=== PATIENT | male | born 1960 ===

== ENCOUNTER 2019-05-16 10:54 | Emergency (ER) | payer SELFPAY ==
[2019-05-16] MEDS ORDERED: TERBINAFINE1 % EX (11:32)
[2019-05-16 12:07] VITALS: BP 125/94
== END 2019-05-16 12:07 | disposition home or self-care (01) | DRG 395 ==
LOC: ED 10:54
DX: K94.22 Gastrostomy infection (principal); B37.2 Candidiasis of skin and nail

== ENCOUNTER 2021-01-08 17:06 | Emergency (ER) | payer MEDICAID ==
[~2021-01-08] VITALS: Ht 177.8 cm; Wt 71.8 kg
[~2021-01-08 17:06] MED LIST: TERBINAFINE1 % EX
[2021-01-08 19:47] LABS: HEMATOCRIT 40.6 % (39.0-50.0); HEMOGLOBIN 13.4 g/dl (14.0-18.0); IMMATURE GRANULOCYTES 0.5 % (0.0-5.0); MEAN CELL VOLUME 95.1 fL CALC (80.0-100.0); MEAN CORPUSCULAR HGB 31.4 pG CALC (26.0-32.0); NEUT# 10.47 thou/uL (1.82-7.42); RED BLOOD COUNT 4.27 mill/uL (4.70-6.10); RED CELL DISTRI WIDTH 13.2 % (11.5-15.5)
[2021-01-08 19:54] LABS: BUN 16 mg/dL (9-20); BUN/CREATININE RATIO 25 (12-20 (CALC)); CARBON DIOXIDE 30 mmol/l (22-30); CHLORIDE 94 mmol/l (95-108); CREATININE 0.6 mg/dL (0.7-1.3); GFR > 60 ML/MIN (>=60 (CALC)); GFR FOR AFR.AMER. > 60 ML/MIN (>=60 (CALC)); POTASSIUM 4.6 mmol/l (3.5-5.1); TOTAL PROTEIN 6.5 g/dL (6.3-8.2)
[2021-01-08 19:55] LABS: ALBUMIN 3.3 g/dL (3.2-5.0); ALKALINE PHOSPHATASE 977 u/l (38-126); AMYLASE 42 u/l (30-110); ANION GAP 11 (6-22 (CALC)); BILIRUBIN, TOTAL 0.9 mg/dL (0.0-1.4); LIPASE 48 u/l (23-300); SGOT/AST 165 u/l (17-59); SODIUM 130 mmol/l (137-146)
[2021-01-08 22:41] LABS: URINE BILIRUBIN - DIPSTICK NEGATIVE (NEGATIVE); URINE BLOOD DIPSTICK NEGATIVE (NEGATIVE); URINE COLOR YELLOW; URINE GLUCOSE - DIPSTICK NEGATIVE (NEGATIVE); URINE KETONE NEGATIVE (NEGATIVE); URINE LEUK ESTERASE NEGATIVE (NEGATIVE); URINE PROTEIN - DIPSTICK NEGATIVE (NEG-TRACE); URINE UROBILINOGEN - DIPSTICK 0.2 E.U./dL (0.2)
[2021-01-08 22:47] LABS: URINE NITRITE - DIPSTICK NEGATIVE (Negative)
[2021-01-08] MEDS ORDERED: LORTAB 5/3255 MG PO (22:58)
[2021-01-08 23:09] VITALS: BP 101/58
== END 2021-01-08 23:19 | disposition home or self-care (01) ==
LOC: ED 17:06
PROVIDERS: Family Medicine
DX: R10.31 Right lower quadrant pain (principal); R16.0 Hepatomegaly, not elsewhere classified; Z20.822 Contact with and (suspected) exposure to COVID-19
CPT/HCPCS: Q9967

== ENCOUNTER 2021-07-29 06:41 | Inpatient (IN) | payer MEDICARE, MEDICAID ==
[2021-07-29] VITALS (61 sets, daily range): BP systolic 82–126; BP diastolic 36–76
[~2021-07-29] VITALS: Ht 180.3 cm; Wt 74.0 kg
[~2021-07-29 06:41] MED LIST changes: +LORTAB 5/3255 MG PO
--- NOTE | 2021-07-29 07:03 | NUR ---
PT TO ROOM PER W/C
[2021-07-29] MEDS ORDERED: ELIQUIS5 MG PO (07:32)
[2021-07-29] MEDS ORDERED: FAMOTIDINE20 M1 PO (07:35)
[2021-07-29] MEDS ORDERED: COMPAZINE10 MG PO (07:35)
[2021-07-29] MEDS ORDERED: SALAGEN7.5 MG PO (07:38)
[2021-07-29] MEDS ORDERED: ONDANSETRON ODT8 MG PO (07:38)
[2021-07-29] MEDS ORDERED: OXYCODONE20 M1 PO (07:43)
[2021-07-29] MEDS ORDERED: FENTANYL50 MCG/HR TD (07:45)
[2021-07-29 07:57] LABS: IMMATURE GRANULOCYTES 0.5 % (0.0-5.0); MEAN CORPUSCULAR HGB 31.2 pG CALC (26.0-32.0); MEAN CORPUSCULAR HGB CONC 33.6 g/dL CAL (32.0-36.0); PLATELET COUNT 532 thou/uL (130-400); RED BLOOD COUNT 3.14 mill/uL (4.70-6.10); RED CELL DISTRI WIDTH 16.8 % (11.5-15.5)
--- NOTE | 2021-07-29 08:00 | NUR ---
PT LABS SENT, MEDICATED FOR PAIN AND PLACED ON BIPAP.
[2021-07-29 08:10] LABS: ALBUMIN 2.7 g/dL (3.2-5.0); ALKALINE PHOSPHATASE 805 u/l (38-126); ANION GAP 9 (6-22 (CALC)); BUN 27 mg/dL (9-20); BUN/CREATININE RATIO 29 (12-20 (CALC)); CARBON DIOXIDE 30 mmol/l (22-30); CHLORIDE 90 mmol/l (95-108); CREATININE 0.9 mg/dL (0.7-1.3); GFR > 60 ML/MIN (>=60 (CALC)); GFR FOR AFR.AMER. > 60 ML/MIN (>=60 (CALC)); LIPASE < 10 u/l (23-300); POTASSIUM 5.1 mmol/l (3.5-5.1); SGOT/AST 94 u/l (17-59); SODIUM 124 mmol/l (137-146); TOTAL PROTEIN 6.4 g/dL (6.3-8.2)
[2021-07-29 08:14] LABS: HEMATOCRIT 29.2 % (39.0-50.0); HEMOGLOBIN 9.8 g/dl (14.0-18.0)
[2021-07-29 08:15] LABS: MANUAL DIFFERENTIAL YES
--- NOTE | 2021-07-29 09:10 | NUR ---
PT ARNEL TO CT. PLACED ON NRB @15
[2021-07-29 09:30] LABS: URINE BILIRUBIN - DIPSTICK NEGATIVE (NEGATIVE); URINE BLOOD DIPSTICK NEGATIVE (NEGATIVE); URINE COLOR YELLOW; URINE GLUCOSE - DIPSTICK NEGATIVE (NEGATIVE); URINE KETONE NEGATIVE (NEGATIVE); URINE LEUK ESTERASE NEGATIVE (NEGATIVE); URINE PROTEIN - DIPSTICK NEGATIVE (NEG-TRACE)
[2021-07-29 09:32] LABS: URINE NITRITE - DIPSTICK NEGATIVE (Negative)
--- NOTE | 2021-07-29 10:00 | NUR ---
PT RESTING COMFORTABLY IN BED. VSS
--- NOTE | 2021-07-29 11:00 | NUR ---
Reassessment of patient completed. No distress noted.
--- NOTE | 2021-07-29 12:00 | NUR ---
Reassessment of patient completed. No distress noted.
--- NOTE | 2021-07-29 13:00 | NUR ---
Reassessment of patient completed. No distress noted.
--- NOTE | 2021-07-29 13:10 | NUR ---
PT PLACED ON PAP THERAPY TODAY PER PT PRESENTED TO ED ON RA WITH SPO2 = 78. SOB C LABORED BREATHING, ABG WAS ATTEMPTED, HOWEVER COULD NOT BE OBTAINED PER PT ANXIETY. PT PLACED ON PAP THERAPY C NAD. VSS. TITRATED PARAMETERS OF NIV PER PT SPO2. MEMS DEVICE SCIENTIST TO MONITOR.
--- NOTE | 2021-07-29 13:34 | NUR ---
pt placed on 6lpm nc, nad. vss. pt states his breathing is feeling better.
--- NOTE | 2021-07-29 14:18 | NUR ---
PROVIDED PT WITH MILK AND REPOSTIONED PT. UPDATED PT ON POC AND WAIT TIMES FOR ADMISSION
[2021-07-29] MEDS ORDERED: ALDACTONE25 MG PO (14:27)
[2021-07-29] MEDS ORDERED: EUTHYROX25 MCG PO (14:27)
[2021-07-29] MEDS ORDERED: OMEPRAZOLE DR40 MG PO (14:27)
--- NOTE | 2021-07-29 15:00 | NUR ---
Reassessment of patient completed. No distress noted.
--- NOTE | 2021-07-29 16:00 | NUR ---
Reassessment of patient completed. No distress noted.
--- NOTE | 2021-07-29 17:00 | NUR ---
Reassessment of patient completed. No distress noted.
--- NOTE | 2021-07-29 18:07 | NUR ---
Reassessment of patient completed. No distress noted.
--- NOTE | 2021-07-29 19:15 | NUR ---
REPORT TO YANETH MARK/ICU.
--- NOTE | 2021-07-29 19:35 | NUR ---
PT TALKING WITH S.O. ON SPEAKER PHONE....WHO IS UPSET BECAUSE WE TOLD THEM VISITING HOURS ARE OVER....PT CALLED US "[facility]." PT APPARENTLY UPSET HE THINKS I CALLED HIM AN ASSHOLE, HOWEVER, JAYME, NURSING PACKING SHED SUPERVISOR OVERHEARD CONVERSATION... SHE WAS IN ROOM TO TAKE PT UPSTAIRS.
--- NOTE | 2021-07-29 19:45 | NUR ---
PT TO FLOOR WITH POST HOLE DIGGER WITH O2 AND BELONGINGS.
--- NOTE | 2021-07-29 20:00 | NUR ---
ARRIVED VIA STRETCHER TO ICU ROOM 3 ACCOMPANIED BY NURSE. ALERT AND ORIENTED TRANSFERED TO HOSPITAL BED WITHOUT DIFFICULTY. SOB NOTED WITH EXERTION. PATIENT ORIENTED TO ROOM AND HOURS OF VISITATION FOR FAMILY. DISCUSSED PLAN OF CARE. PATIENT ABLE TO TOLERATE PO FLUIDS. OMPLAIN OF LOWER BACK PAIN AT 3 - 4 ON PAIN SCALE HOME MEDICATION RECORD REVIEWED.
--- NOTE | 2021-07-29 22:00 | NUR ---
RESTING QUIETLY IN BED WITH EYES CLOSED NO ACUTE DISTRESS NOTED. RESPIRATIONS EVEN AND UNLABORED
--- NOTE | 2021-07-29 23:00 | NUR ---
PATIENT TURNED AND REPOSITIONED TO LEFT SIDE PLACED IN SEMIFOWLER POSITION FOR COMFORT RESPIRATION EFFORT IMPROVED RESPIRATIONS EVEN AND UNLABORED O2 SAT 95% ON 4LPM NC WILL CONTINUE TO MONITOR.
[2021-07-30] VITALS (206 sets, daily range): BP systolic 81–114; BP diastolic 32–65
--- NOTE | 2021-07-30 | NUR ---
PATIENT RESTING QUIETLY IN BED WITH EYES CLOSED EASILY AROUSABLE ASIISTED TO BEDSIDE COMMODE VOIDED 300 CC ELKE URINE MILD SOB NOTED WITH ACTIVITY. PLEASANT AND COOPERATIVE
--- NOTE | 2021-07-30 01:06 | NUR ---
COMPLAIN OF LOWER BACK PAIN MEDICATED WITH OXYCOTIN 15 MG PO REPOSITIONED IN BED FOR COMFORT RESPIRATORY EFFORT IMPROVEDON HUMDIFIED O2 AT 4LPM NC
--- NOTE | 2021-07-30 02:00 | NUR ---
RESTING QUIETLY IN BED NO ACUTE DISTRESS NOTED VSS
--- NOTE | 2021-07-30 04:00 | NUR ---
TURNED AND REPOSITIONED IN BED FOR COMFORT NO ACUTE DISTRESS NOTED RESPIRATIONS EVEN AND UNLABORED.
--- NOTE | 2021-07-30 05:08 | NUR ---
COMPLAIN OF LOWER BACK PAIN ASSSISTED IN REPOSITIONING IN BED. MEDICATED TO ALLEVIATE PAIN AND DISCOMFORT.
--- NOTE | 2021-07-30 06:01 | NUR ---
RESTING QUIETLY IN BED NO ACUTE DISTRESS NOTED. RESPIRATIONS EVEN AND UNLABORED. AFFECT GOOD.
[2021-07-30 06:09] LABS: HEMATOCRIT 29.8 % (39.0-50.0); HEMOGLOBIN 9.9 g/dl (14.0-18.0); MEAN CORPUSCULAR HGB 31.2 pG CALC (26.0-32.0); MEAN CORPUSCULAR HGB CONC 33.2 g/dL CAL (32.0-36.0); RED BLOOD COUNT 3.17 mill/uL (4.70-6.10); RED CELL DISTRI WIDTH 17.2 % (11.5-15.5)
[2021-07-30 06:48] LABS: ALBUMIN 2.3 g/dL (3.2-5.0); ALKALINE PHOSPHATASE 669 u/l (38-126); ANION GAP 8 (6-22 (CALC)); BILIRUBIN, TOTAL 1.6 mg/dL (0.0-1.4); BUN 24 mg/dL (9-20); BUN/CREATININE RATIO 28 (12-20 (CALC)); CARBON DIOXIDE 28 mmol/l (22-30); CHLORIDE 94 mmol/l (95-108); CREATININE 0.9 mg/dL (0.7-1.3); GFR > 60 ML/MIN (>=60 (CALC)); GFR FOR AFR.AMER. > 60 ML/MIN (>=60 (CALC)); MAGNESIUM 2.1 mg/dL (1.6-2.3); POTASSIUM 4.9 mmol/l (3.5-5.1); SGOT/AST 84 u/l (17-59); SODIUM 125 mmol/l (137-146); TOTAL PROTEIN 5.3 g/dL (6.3-8.2)
--- NOTE | 2021-07-30 07:31 | NUR ---
REPORT RECEIVED FROM YANETH MARK. PT AWAKE AND ALERT. STATES HE IS FEELING BETTER. BREATHING LIKE HE WAS BEFORE HE CAME IN. PT VSS. ADMITS TO PAIN. ASSESSMENT PREFORMED. LEFT WRIST HAS BANDAGE FROM HOME (PAPER TOWELS) THAT ARE DRIED TO SKIN. WILL SOAK WITH WARM WATER AND RE-APPLY ACCORDINGLY. CALL LIGHT WITHIN REACH. INSTRUCTED PT TO CALL FOR ASSISTANCE, STATES UNDERSTANDING.
--- NOTE | 2021-07-30 07:38 | NUR ---
Patient is screened for PT intervention and no immediate needs are identified at this time
--- NOTE | 2021-07-30 07:42 | NUR ---
PT BROUGHT MILK AT THIS TIME. TOOK A SIP AND IMMEDIATELY STARTS TO COUGH. MD NOTIFIED, ALL MEDS CHANGED FROM PO ROUTE TO PEG TUBE PT ADMITS HE MAY BE ASPIRATING. WILL HOLD DIET UNTIL FURTHER ORDERS TO POC.
--- NOTE | 2021-07-30 10:00 | NUR ---
IN AT THIS TIME, GIVEN ORDERS TO TRANSFER TO MED-SURG. PT STATES UNDERSTANDING. FAMILY HERE AND REQUESTING A VISIT. PT DENIES NEEDS OR CONCERNS. CALL LIGHT WITHIN REACH. INSTRUCTED PT TO CALL FOR ASSISTANCE, VERBALIZES UNDERSTANDING.
--- NOTE | 2021-07-30 12:00 | NUR ---
SNOWBOARDER IN AT THIS TIME TO DISCUSS SUPPLEMENTAL CHOICES VIA PEG-TUBE. FAMILY REMAINS AT BS, SHOWN MEAL REPLACEMENTS. NO CHANGE TO DIET MADE AT THIS TIME.
--- NOTE | 2021-07-30 16:00 | NUR ---
PT RESTING COMFORTABLY IN BED. DENIES NEEDS OR CONCERNS. CALL LIGHT WITHIN REACH. INSTRUCTED PT TO CALL FOR ASSISTANCE. STATES UNDERSTANDING.
--- NOTE | 2021-07-30 19:55 | NUR ---
PATIENT RESTING ON SIDE OF BED WATCHING TV. ALERT AND ORIENTED. ABLE TO MAKE NEEDS KNOWN. ASSESSMENT COMPLETE. BELLY APPEARS DISTENDED. ACTIVE BOWEL SOUNDS PRESENT. NO SHORTNESS OF BREATH OBSERVED. O2 REMAINS AT 4L NC. PATIENT USES BEDSIDE COMMODE AND URINAL. PLAYS CARDS ON BEDSIDE TABLE. CALL LIGHT AND BELONGINGS REMAIN IN REACH.
--- NOTE | 2021-07-30 23:06 | NUR ---
NOTIFIED PROVIDER CLARIFYING IF HE WANTED PATIENT TO RECEIVE IVF. IVF TO BE HUNG PER ORDERS IN [facility]. PROVIDER AWARE OF PATIENTS SBP RUNNING IN THE 80'S AT TIMES.
[2021-07-31] VITALS (10 sets, daily range): BP systolic 98–111; BP diastolic 43–58
--- NOTE | 2021-07-31 00:18 | NUR ---
1L IV FLUID BOLUS HUNG PER DOCTOR ORDER IN [facility]. PATIENT REPOSITIONED IN BED. EMPTIED URINAL WITH 50CC OUTPUT. UNTANGLED HIS CHORDS TO THE ROOM MONITOR. REPLACED TELE LEAD THAT WASNT STICKING. CALL LIGHT AND BELONGINGS IN REACH.
--- NOTE | 2021-07-31 02:30 | NUR ---
PATIENT YELLED OUT NURSE NAME INSTEAD OF USING CALL LIGHT. OSERVED PATIENT STANDING GRABBING BSC, BACKED UP AND SAT DOWN ON BED. PATIENT APPEARED TO LOSE BALANCE. PATIENT VOIDED IN BSC. REMINDED PATIENT TO USE CALL LIGHT TO CALL FOR ASSISTANCE, THAT WAY WE KNOW WHAT PATIENT IS CALLING.
--- NOTE | 2021-07-31 04:00 | NUR ---
PATIENT RESTING ON SIDE OF BED. LABS DRAWN. PATIENT TOLERATED WELL. PATIENT AMBULATED TO BSC WITH ASSISTANCE. VOIDED. OBSERVED PATIENT TRANSFER BACK TO BED. PATIENT LAYING IN BED TOWARDS LEFT SIDE.
--- NOTE | 2021-07-31 04:40 | NUR ---
HELPED PATIENT AMBULATE TO RECLINER. PROVIDED WARM BLANKET. REAPPLIED TELE LEAD THAT WAS OFF. EMPTIED COMMODE. FIXED UP PATIENTS BED SHEETS. TOOK OUT PATIENTS TRASH. CALL LIGHT WITHIN REACH.
[2021-07-31 05:20] LABS: HEMATOCRIT 30.1 % (39.0-50.0); HEMOGLOBIN 10.1 g/dl (14.0-18.0); IMMATURE GRANULOCYTES 1.8 % (0.0-5.0); MEAN CELL VOLUME 92.9 fL CALC (80.0-100.0); MEAN CORPUSCULAR HGB 31.2 pG CALC (26.0-32.0); MEAN CORPUSCULAR HGB CONC 33.6 g/dL CAL (32.0-36.0); RED BLOOD COUNT 3.24 mill/uL (4.70-6.10); RED CELL DISTRI WIDTH 17.1 % (11.5-15.5)
[2021-07-31 05:55] LABS: ALKALINE PHOSPHATASE 787 u/l (38-126); ANION GAP 5 (6-22 (CALC)); BILIRUBIN, TOTAL 1.5 mg/dL (0.0-1.4); BUN 20 mg/dL (9-20); BUN/CREATININE RATIO 29 (12-20 (CALC)); CARBON DIOXIDE 28 mmol/l (22-30); CHLORIDE 94 mmol/l (95-108); CREATININE 0.7 mg/dL (0.7-1.3); GFR > 60 ML/MIN (>=60 (CALC)); GFR FOR AFR.AMER. > 60 ML/MIN (>=60 (CALC)); POTASSIUM 4.4 mmol/l (3.5-5.1); SGOT/AST 102 u/l (17-59); SODIUM 123 mmol/l (137-146)
--- NOTE | 2021-07-31 06:04 | NUR ---
PATIENT RECEIVED PRN PAIN MEDICATION PER REQUEST.
--- NOTE | 2021-07-31 08:00 | NUR ---
REPORT RECEIVED FROM YANETH CROOKS. PT AWAKE AND ALERT. SHOWS SOME AGITATION. WANTING TO BE DISCHARGED. TIRED OF BEING "TIED DOWN" REFERRING TO WALL MONITOR AND PULSE OX. PT STATES THAT HE IS STILL IN PAIN, AND THAT HE "JUST WANTS TO GO HOME."
--- NOTE | 2021-07-31 10:15 | NUR ---
PT REQUESTING PAIN MEDICATION AT THIS TIME, GIVEN OXYCODONE 15MG PER PEG TUBE. FAMILY MEMBER IN ROOM ASSISTING WITH PATIENT AND ADL'S AND COMFORTING. PT VSS, CALL LIGHT WITHIN REACH. INSTRUCTED PT TO CALL FOR ASSISTANCE, VERBALIZES UNDERSTANDING.
[2021-07-31] MEDS ORDERED: LEVAQUIN750 M1 PO (14:02)
--- NOTE | 2021-07-31 15:40 | NUR ---
PT DISCHARGED AT THIS TIME IN STABLE CONDITION. MURRAY FROM [facility] IN TO GIVE PORTABLE OXYGEN. PT EDUCATED ON USE. STATES UNDERSTANDING. DISCHARGE INSTRUCTIONS GIVEN.
== END 2021-07-31 15:40 | disposition home or self-care (01) | DRG 193 ==
LOC: ED 06:41 → ED-I 13:18 → ED 14:07 → ICU 14:08 → ED-I 14:08 → ICU 19:26
PROVIDERS: Family Medicine; ADMIT Hospitalist; ATTEND Hospitalist
PROC: 5A09357 Assistance with Respiratory Ventilation, Less than 24 Consecutive Hours, Continuous Positive Airway Pressure (ICD-10-PCS; principal; 2021-07-29)
DX: J18.9 Pneumonia, unspecified organism (principal); J96.01 Acute respiratory failure with hypoxia; C78.7 Secondary malignant neoplasm of liver and intrahepatic bile duct; E87.2 Acidosis; C09.9 Malignant neoplasm of tonsil, unspecified; R13.10 Dysphagia, unspecified; K74.60 Unspecified cirrhosis of liver; M54.9 Dorsalgia, unspecified; G89.29 Other chronic pain; F17.200 Nicotine dependence, unspecified, uncomplicated; Z93.1 Gastrostomy status; Z92.3 Personal history of irradiation; Z92.21 Personal history of antineoplastic chemotherapy; Z79.01 Long term (current) use of anticoagulants; Z79.891 Long term (current) use of opiate analgesic; Z20.822 Contact with and (suspected) exposure to COVID-19
CPT/HCPCS: Q9967

== ENCOUNTER 2021-08-02 07:33 | Inpatient (IN) | payer MEDICARE, MEDICAID ==
[2021-08-02] VITALS (106 sets, daily range): BP systolic 56–130; BP diastolic 23–111
[~2021-08-02] VITALS: Ht 180.3 cm; Wt 87.7 kg
[~2021-08-02 07:33] MED LIST changes: +ALDACTONE25 MG PO; +COMPAZINE10 MG PO; +ELIQUIS5 MG PO; +EUTHYROX25 MCG PO; +FAMOTIDINE20 M1 PO; +FENTANYL50 MCG/HR TD; +LEVAQUIN750 M1 PO; +OMEPRAZOLE DR40 MG PO; +ONDANSETRON ODT8 MG PO; +OXYCODONE20 M1 PO; +SALAGEN7.5 MG PO
[2021-08-02 08:01] LABS: IMMATURE GRANULOCYTES 3.6 % (0.0-5.0); MEAN CELL VOLUME 92.1 fL CALC (80.0-100.0); MEAN CORPUSCULAR HGB 30.8 pG CALC (26.0-32.0); MEAN CORPUSCULAR HGB CONC 33.5 g/dL CAL (32.0-36.0); NEUT# 23.48 thou/uL (1.82-7.42); RED BLOOD COUNT 4.28 mill/uL (4.70-6.10); RED CELL DISTRI WIDTH 17.3 % (11.5-15.5)
[2021-08-02 08:20] LABS: ALBUMIN 2.3 g/dL (3.2-5.0); ALKALINE PHOSPHATASE 899 u/l (38-126); BILIRUBIN, TOTAL 1.5 mg/dL (0.0-1.4); BUN 22 mg/dL (9-20); BUN/CREATININE RATIO 32 (12-20 (CALC)); CHLORIDE 91 mmol/l (95-108); CREATININE 0.7 mg/dL (0.7-1.3); GFR > 60 ML/MIN (>=60 (CALC)); GFR FOR AFR.AMER. > 60 ML/MIN (>=60 (CALC)); SGOT/AST 99 u/l (17-59); TOTAL PROTEIN 5.6 g/dL (6.3-8.2)
[2021-08-02 08:26] LABS: ANION GAP 11 (6-22 (CALC)); CARBON DIOXIDE 22 mmol/l (22-30); POTASSIUM 5.4 mmol/l (3.5-5.1); SODIUM 119 mmol/l (137-146)
[2021-08-02 08:27] LABS: HEMATOCRIT 39.4 % (39.0-50.0); HEMOGLOBIN 13.2 g/dl (14.0-18.0)
[2021-08-02 12:57] LABS: URINE BILIRUBIN - DIPSTICK NEGATIVE (NEGATIVE); URINE BLOOD DIPSTICK TRACE-INTACT (NEGATIVE); URINE COLOR YELLOW; URINE GLUCOSE - DIPSTICK NEGATIVE (NEGATIVE); URINE KETONE NEGATIVE (NEGATIVE); URINE LEUK ESTERASE NEGATIVE (NEGATIVE); URINE NITRITE - DIPSTICK NEGATIVE (Negative); URINE PH 6.5 (4.5-8.0); URINE PROTEIN - DIPSTICK NEGATIVE (NEG-TRACE); URINE UROBILINOGEN - DIPSTICK 0.2 E.U./dL (0.2)
[2021-08-03] VITALS (22 sets, daily range): BP systolic 55–160; BP diastolic 24–132
[2021-08-03 05:16] LABS: HEMATOCRIT 44.9 % (39.0-50.0); HEMOGLOBIN 14.2 g/dl (14.0-18.0); MEAN CELL VOLUME 97.4 fL CALC (80.0-100.0); MEAN CORPUSCULAR HGB 30.8 pG CALC (26.0-32.0); MEAN CORPUSCULAR HGB CONC 31.6 g/dL CAL (32.0-36.0); RED BLOOD COUNT 4.61 mill/uL (4.70-6.10); RED CELL DISTRI WIDTH 16.6 % (11.5-15.5)
[2021-08-03 05:27] LABS: BUN 30 mg/dL (9-20); CHLORIDE 93 mmol/l (95-108)
[2021-08-03 05:41] LABS: BUN/CREATININE RATIO 17 (12-20 (CALC)); CREATININE 1.8 mg/dL (0.7-1.3); GFR 39 ML/MIN (>=60 (CALC)); GFR FOR AFR.AMER. 47 ML/MIN (>=60 (CALC))
[2021-08-03 05:44] LABS: ALBUMIN 1.6 g/dL (3.2-5.0); ALKALINE PHOSPHATASE 383 u/l (38-126); ANION GAP 14 (6-22 (CALC)); CARBON DIOXIDE 16 mmol/l (22-30); SGOT/AST > 1500 u/l (17-59); TOTAL PROTEIN 4.3 g/dL (6.3-8.2)
[2021-08-03 05:53] LABS: SODIUM 115 mmol/l (137-146)
== END 2021-08-03 05:01 | disposition expired | DRG 871 ==
LOC: ED 07:33 → ED-I 08:30 → ED 09:04 → ICU 09:05
PROVIDERS: Family Medicine; ADMIT Internal Medicine; ATTEND Internal Medicine
PROC: 5A09357 Assistance with Respiratory Ventilation, Less than 24 Consecutive Hours, Continuous Positive Airway Pressure (ICD-10-PCS; principal; 2021-08-02)
PROC: 5A1935Z Respiratory Ventilation, Less than 24 Consecutive Hours (ICD-10-PCS; 2021-08-02)
PROC: 0BH17EZ Insertion of Endotracheal Airway into Trachea, Via Natural or Artificial Opening (ICD-10-PCS; 2021-08-02)
PROC: 0T9B70Z Drainage of Bladder with Drainage Device, Via Natural or Artificial Opening (ICD-10-PCS; 2021-08-02)
PROC: 02HV33Z Insertion of Infusion Device into Superior Vena Cava, Percutaneous Approach (ICD-10-PCS; 2021-08-02)
DX: A41.9 Sepsis, unspecified organism (principal); J18.9 Pneumonia, unspecified organism; J96.01 Acute respiratory failure with hypoxia; C78.7 Secondary malignant neoplasm of liver and intrahepatic bile duct; R65.20 Severe sepsis without septic shock; C09.9 Malignant neoplasm of tonsil, unspecified; G89.3 Neoplasm related pain (acute) (chronic); Z66 Do not resuscitate; Z92.3 Personal history of irradiation; Z92.21 Personal history of antineoplastic chemotherapy; Z93.1 Gastrostomy status; R62.7 Adult failure to thrive; Z68.24 Body mass index [BMI] 24.0-24.9, adult; Z79.01 Long term (current) use of anticoagulants; Z20.822 Contact with and (suspected) exposure to COVID-19
CPT/HCPCS: J2060